=== PATIENT | female | born 1955 | race Caucasian/White ===

== ENCOUNTER 2023-12-21 21:12 | Emergency (ER) | payer MEDICARE ==
[2023-12-21] MEDS: predniSONE 20 MG Tab PO ONE (22:10)
== END 2023-12-21 22:16 | disposition home or self-care (01) ==
LOC: JP.ED 21:12
DX: T63.441A Toxic effect of venom of bees, accidental (unintentional), initial encounter (principal); Z91.030 Bee allergy status; Z88.2 Allergy status to sulfonamides
CPT/HCPCS: 99282; 99283; J7512